=== PATIENT | female | born 1995 | race American Indian/Alaskan Native ===

== ENCOUNTER 2017-10-13 18:21 | Emergency (ER) | payer OTHER, MEDICAID ==
[2017-10-13 18:42] VITALS: BP 133/84; PULSE 96; RESP 18; TEMP 98; O2SAT 100
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
== END 2017-10-13 19:21 | disposition home or self-care (01) ==
LOC: C.ER 18:21
DX: Z04.1 Encounter for examination and observation following transport accident (principal)

== ENCOUNTER 2018-12-26 11:02 | Emergency (ER) | payer MEDICAID ==
[2018-12-26 11:40] VITALS: BP 120/89; PULSE 101; RESP 18; TEMP 98.8; O2SAT 99
[2018-12-26] MEDS ORDERED: guaiFENesin 600 mg ER Tab PO STA (12:02)
--- NOTE | 2018-12-26 12:04 | C.PDOC ---
History Of Present Illness 23 y/o female comes in to ED complaining of a nonproductive cough, sore throat, and greenish mucus in her throat since yesterday. Patient denies fever, headache, dizziness, or neck pain. Patient had no direct contact with the child who from meningitis or the akbar mother at the building they live in. Time Seen by Provider: 12/26/18 11:37 Chief Complaint (Nursing): ENT Problem History Per: Patient History/Exam Limitations: None Onset/Duration Of Symptoms: Days Current Symptoms Are (Timing): Still Present Past Medical History Reviewed: Historical Data, Nursing Documentation, Vital Signs Vital Signs: Last Vital Signs Temp 98.8 F 12/26/18 11:36 Pulse 101 H 12/26/18 11:36 Resp 18 12/26/18 11:36 BP 120/89 12/26/18 11:36 Pulse Ox 99 12/26/18 11:36 Family History: States: No Known Family Hx - Social History Hx Tobacco Use: No Hx Alcohol Use: No Hx Substance Use: No - Immunization History Hx Tetanus Toxoid Vaccination: No Hx Influenza Vaccination: No Hx Pneumococcal Vaccination: No Review Of Systems Constitutional: Negative for: Fever, Chills ENT: Positive for: Throat Pain (sore throat) Respiratory: Positive for: Cough (nonproductive), Sputum (greenish) Musculoskeletal: Negative for: Neck Pain Neurological: Negative for: Headache, Dizziness Physical Exam - Physical Exam Appears: Non-toxic, No Acute Distress Skin: Warm, Dry Head: Atraumatic, Normacephalic Eye(s): bilateral: Normal Inspection Oral Mucosa: Moist Neck: Supple Cardiovascular: Rhythm Regular, No Murmur Respiratory: Normal Breath Sounds, No Rales, No Rhonchi, No Wheezing Extremity: Bilateral: Atraumatic, Normal Color And Temperature, Normal ROM Neurological/Psych: Oriented x3, Normal Speech ED Course And Treatment O2 Sat by Pulse Oximetry: 99 (RA) Pulse Ox Interpretation: Normal Progress Note: Patient was given tessalon and mucinex PO. Will be discharged home with mucinex and tessalon. Disposition Counseled Patient/Family Regarding: Diagnosis, Need For Followup, Rx Given - Disposition Referrals: [facility] [Outside] Disposition: HOME/ ROUTINE Disposition Time: 12:10 Condition: STABLE Additional Instructions: FOLLOW UP WITH YOUR DOCTOR IN 1-2 DAYS USE MEDICATIONS DIRECTED RETURN TO ER IF SYMPTOMS WORSEN Prescriptions: Benzonatate [Tessalon Perles] 100 mg PO BID PRN #15 sgl PRN Reason: Cough Guaifenesin [Mucinex] 600 mg PO BID PRN #15 [id number] PRN Reason: MUCUS Instructions: Viral Upper Respiratory Infection, Adult (DC) Forms: [employer] ([place]) Print Language: GREENLANDIC - Clinical Impression Clinical Impression: Viral upper respiratory infection - Scribe Statement The provider has reviewed the documentation as recorded by the Angel Charles Provider Attestation: All medical record entries made by the Angel were at my direction and personally dictated by me. I have reviewed the chart and agree that the record accurately reflects my personal performance of the history, physical exam, medical decision making, and the department course for this patient. I have also personally directed, reviewed, and agree with the discharge instructions and disposition.
== END 2018-12-26 12:30 | disposition home or self-care (01) ==
LOC: C.ER 11:02
DX: J06.9 Acute upper respiratory infection, unspecified (principal)